=== PATIENT | female | born 1960 | race Caucasian/White ===

== ENCOUNTER → 2016-12-03 | Outpatient (CLI) | payer OTHER ==
[~2016-12-03] MED LIST: CIPRO PO; DYAZIDE 37.5/251 CAP PO; LORTAB 7.5-5001 TAB PO; VICODIN PO; ZOCOR PO
--- NOTE | ~2016-12-03 | BD1 ---
[facility] A Service [facility] RADIOLOGY TEXT RESULTS PATIENT: LUDA CLOUD LOCATION: [facility] : 56 UNIT #: [id number] AGE: [address]: Keven Gonzalez MD SEX: F ORDER DR: [id number] [place] [id number] O MR#: [id number] Acc #: [id number] NAME: LUDA CLOUD : 1960 SEX: F STUDY DATE/TIME: 12/03/2016 10:40 UNIT: SRAD ROOM: STUDY DESCRIPTION: Dexa Bone Dens 1+ Site Attending Physician: Keven Gonzalez M.D. Ordering Physician: Keven Gonzalez M.D. Primary Care Physician: Keven Gonzalez M.D. MEDICAL IMAGING REPORT This report is preliminary unless electronic signature is present. EXAM DXA scan, 12/03/2016 HISTORY Status post menopause with no hormone replacement therapy. Osteopenia. Partial hysterectomy. FINDINGS Bone mineral density in the lumbar spine from L1-L4 was 1.022 g/cm2 which is 1.3 standard deviations below the mean when compared to the young adult reference population which is characteristic of osteopenia. This is 1.4 standard deviations below the mean when compared to the age-matched population. Bone mineral density in the left femoral neck was 0.783 g/cm2 which is 1.8 standard deviations below the mean when compared to the young adult reference population which is characteristic of osteopenia. This is 1.4 standard deviations below the mean when compared to the age-matched population. Bone mineral density in the right femoral neck was 0.753 g/cm2 which is 2 standard deviations below the mean when compared to the young adult reference population which is characteristic of osteopenia. This is 1.6 standard deviations below the mean when compared to the age-matched population. IMPRESSION Bone mineral density in the lumbar spine and the hips bilaterally characteristic of osteopenia. Dictated by... Rodrigue Lee M.D. [facility] A Service of [facility] [place] RADIOLOGY TEXT RESULTS PATIENT: LUDA CLOUD [facility] : 56 UNIT #: [id number] AGE: [address]: Keven Gonzalez MD SEX: F ORDER DR: THIS IS AN ELECTRONICALLY VERIFIED REPORT Rodrigue Lee M.D. at 12/04/2016 8:12 AM BERNIE/zhen TD: 12/03/2016 14:10 JOB #: [id number] MEDICAL IMAGING REPORT Page 1 of 1
== END | disposition home or self-care (01) ==
LOC: SRAD 09:28
DX: M81.0 Age-related osteoporosis without current pathological fracture (principal); Z90.710 Acquired absence of both cervix and uterus
CPT/HCPCS: 77080